=== PATIENT | female | born 1955 | race Caucasian/White ===

== ENCOUNTER → 2017-04-08 | Outpatient (CLI) | payer OTHER | END | disposition home or self-care (01) | LOC: CDC 12:19 | DX: I10 Essential (primary) hypertension (principal); I25.2 Old myocardial infarction; R94.31 Abnormal electrocardiogram [ECG] [EKG] | CPT/HCPCS: 93000 ==

== ENCOUNTER 2017-08-07 15:23 | Inpatient (IN) | payer OTHER ==
[~2017-08-07] VITALS: Ht 167.6 cm; Wt 140.1 kg
[~2017-08-07 15:23] MED LIST: ULTRACET1 TABLET PO
[2017-08-07 16:18] LABS: HEMATOCRIT 39.6 % (36.0-46.0); HEMOGLOBIN 11.6 G/DL (11.9-15.5); MCH 24.3 PG (29.0-34.0); MCHC 29.3 G/DL (30.0-36.0); PLATELET COUNT 239 K/uL (156-360); RBC DIS.WIDTH-CV 17.4 % (11.8-14.6); RBC DIS.WIDTH-SD 52.8 % (39-53); RED BLOOD COUNT 4.77 M/uL (3.80-5.20); WHITE BLOOD COUNT 18.1 K/uL (4.1-10.2)
[2017-08-07 16:29] LABS: CHLORIDE 96 mEq/L (99-109); POTASSIUM 4.6 mEq/L (3.7-5.4); SODIUM 136 mEq/L (136-147)
[2017-08-07 16:30] LABS: GLUCOSE 272 mg/dL (70-99)
[2017-08-07 16:34] LABS: CREATININE 1.4 mg/dL (0.6-1.3); GFR ESTIMATE (CALCULATED) 40 mL/min/
[2017-08-07 16:35] LABS: UREA NITROGEN (BUN) 26 mg/dL (9-23)
[2017-08-07 16:39] LABS: TROP-I INTERPRETATION NEGATIVE; TROPONIN-I 0.03 ng/mL (0.0-0.30)
[2017-08-07 18:41] LABS: BASE EXCESS 5.7 mEq/L (-3 to +3); BICARBONATE 33.5 mEq/L (22-26); COMMENTS - BLOOD GASES A+C=; DEVICE NC; METHEMOGLOBIN 0.9 % (0-1.5); O2 FLOW 6 L/MIN; PCO2 65 mm Hg (35-45); PO2 53 mm Hg (80-100); SITE RR; TOTAL RESP RATE 28 resp/min; pH 7.32 (7.35-7.45)
[2017-08-07] MEDS ORDERED: SUCRALFATE1 GM PO (19:19)
[2017-08-07] MEDS ORDERED: METFORMIN HCL1000 MG PO (19:20)
[2017-08-07] MEDS ORDERED: METHADONE10 MG PO (19:21)
[2017-08-07] MEDS ORDERED: LANTUS 3 M100 UNITS1 SC (19:22)
[2017-08-07] MEDS ORDERED: MONTELUKAST SOD10 MG PO (19:23)
[2017-08-07] MEDS ORDERED: HYDROCHLOROTHIA25 MG PO (19:23)
[2017-08-07] MEDS ORDERED: SPIRIVA RESPIMAT4 GM IH (19:24)
[2017-08-07] MEDS ORDERED: HUMALOG100 UNIT/2 SC (19:28)
[2017-08-07] MEDS ORDERED: CAPOTEN25 MG PO (19:29)
[2017-08-07] MEDS ORDERED: PANTOPRAZOLE SO40 MG PO (19:29)
[2017-08-07] MEDS ORDERED: METOPROLOL SUCC25 MG PO (19:31)
[2017-08-07] MEDS ORDERED: ATORVASTATIN CA20 MG PO (19:31)
[2017-08-07] MEDS ORDERED: LO-DOSE ASPIRIN81 M2 PO (19:32)
[2017-08-07] MEDS ORDERED: SYMBICORT60 INHALAT IH (19:36)
[2017-08-07 22:33] VITALS: BP 148/71
[2017-08-07 22:44] VITALS: BP 148/71
[2017-08-08 03:02] VITALS: BP 151/68
[2017-08-08 04:40] LABS: HEMATOCRIT 36.5 % (36.0-46.0); HEMOGLOBIN 10.9 G/DL (11.9-15.5); MCH 24.6 PG (29.0-34.0); MCHC 29.9 G/DL (30.0-36.0); MCV 82.4 FL (83-99); PLATELET COUNT 246 K/uL (156-360); RBC DIS.WIDTH-CV 17.3 % (11.8-14.6); RED BLOOD COUNT 4.43 M/uL (3.80-5.20); WHITE BLOOD COUNT 14.6 K/uL (4.1-10.2)
[2017-08-08 04:58] LABS: CHLORIDE 97 mEq/L (99-109); POTASSIUM 4.2 mEq/L (3.7-5.4); SODIUM 138 mEq/L (136-147)
[2017-08-08 04:59] LABS: GLUCOSE 190 mg/dL (70-99)
[2017-08-08 05:03] LABS: CREATININE 1.2 mg/dL (0.6-1.3); GFR ESTIMATE (CALCULATED) 48 mL/min/
[2017-08-08 05:04] LABS: UREA NITROGEN (BUN) 25 mg/dL (9-23)
[2017-08-08 07:30] VITALS: BP 155/101
[2017-08-08 11:43] VITALS: BP 155/79
[2017-08-08 16:16] VITALS: BP 159/90
[2017-08-08] MEDS ORDERED: VITAMIN D2000 UNI1 PO (18:30)
[2017-08-08] MEDS ORDERED: FISH OIL 1,2001 EAC4 PO (18:41)
[2017-08-08] MEDS ORDERED: MAXEPA500 MG PO (18:42)
[2017-08-08] MEDS ORDERED: PROAIR HFA8.5 GM IH (18:42)
[2017-08-08 20:49] VITALS: BP 148/69
[2017-08-08 23:07] VITALS: BP 168/80
[2017-08-09 04:35] VITALS: BP 138/69
[2017-08-09 06:55] LABS: BASOPHIL (%) 0.2 % (0-1); EOSINOPHIL (%) 1.2 % (0-5); EOSINOPHIL COUNT 0.2 K/uL (0-0.3); HEMATOCRIT 38.6 % (36.0-46.0); HEMOGLOBIN 10.9 G/DL (11.9-15.5); IMMATURE GRANULOCYTE (%) 0.4 % (0.0-0.7); LYMPHOCYTE (%) 10.1 % (15-42); LYMPHOCYTE COUNT 1.3 K/uL (1.0-2.8); MCH 23.5 PG (29.0-34.0); MCHC 28.2 G/DL (30.0-36.0); MCV 83.2 FL (83-99); MONOCYTE (%) 8.3 % (3-12); MONOCYTE COUNT 1.1 K/uL (0-0.8); NEUTROPHIL (%) 79.8 % (45-76); NEUTROPHIL COUNT 10.4 K/uL (1.8-6.4); PLATELET COUNT 298 K/uL (156-360); RBC DIS.WIDTH-CV 17.6 % (11.8-14.6); RBC DIS.WIDTH-SD 53.5 % (39-53); RED BLOOD COUNT 4.64 M/uL (3.80-5.20)
[2017-08-09 07:20] LABS: CHLORIDE 97 MEQ/L (99-109); CREATININE 1.2 MG/DL (0.6-1.3); GFR ESTIMATE (CALCULATED) 48 mL/min/; GLUCOSE 130 mg/dL (70-99); POTASSIUM 4.3 MEQ/L (3.7-5.4); SODIUM 141 MEQ/L (136-147); UREA NITROGEN (BUN) 26 mg/dL (9-23)
[2017-08-09 08:30] VITALS: BP 161/82
[2017-08-09 11:46] VITALS: BP 136/7
[2017-08-09 16:30] VITALS: BP 131/62
[2017-08-09 19:15] VITALS: BP 169/80
[2017-08-10 00:01] VITALS: BP 155/90
[2017-08-10 04:35] VITALS: BP 166/92
[2017-08-10 05:48] LABS: BASOPHIL (%) 0.2 % (0-1); EOSINOPHIL (%) 0.6 % (0-5); EOSINOPHIL COUNT 0.1 K/uL (0-0.3); HEMATOCRIT 42.2 % (36.0-46.0); HEMOGLOBIN 11.9 G/DL (11.9-15.5); IMMATURE GRANULOCYTE (%) 0.4 % (0.0-0.7); LYMPHOCYTE (%) 5.8 % (15-42); LYMPHOCYTE COUNT 0.7 K/uL (1.0-2.8); MCH 23.5 PG (29.0-34.0); MCHC 28.2 G/DL (30.0-36.0); MCV 83.4 FL (83-99); MONOCYTE (%) 1.8 % (3-12); MONOCYTE COUNT 0.2 K/uL (0-0.8); NEUTROPHIL (%) 91.2 % (45-76); NEUTROPHIL COUNT 10.8 K/uL (1.8-6.4); PLATELET COUNT 309 K/uL (156-360); RBC DIS.WIDTH-CV 17.4 % (11.8-14.6); RBC DIS.WIDTH-SD 53.1 % (39-53); RED BLOOD COUNT 5.06 M/uL (3.80-5.20); WHITE BLOOD COUNT 11.9 K/uL (4.1-10.2)
[2017-08-10 06:22] LABS: CHLORIDE 92 MEQ/L (99-109); CREATININE 1.2 MG/DL (0.6-1.3); GFR ESTIMATE (CALCULATED) 48 mL/min/; SODIUM 139 MEQ/L (136-147); UREA NITROGEN (BUN) 30 mg/dL (9-23)
[2017-08-10 06:23] LABS: GLUCOSE 199 mg/dL (70-99); POTASSIUM 5.2 MEQ/L (3.7-5.4)
[2017-08-10 07:49] VITALS: BP 144/69
[2017-08-10 12:10] VITALS: BP 146/81
[2017-08-10 16:38] VITALS: BP 134/74
[2017-08-10 19:15] VITALS: BP 146/79
[2017-08-11] VITALS (7 sets, daily range): BP systolic 133–163; BP diastolic 68–87
[2017-08-12 03:21] VITALS: BP 169/77
[2017-08-12 07:07] LABS: CHLORIDE 96 MEQ/L (99-109); CREATININE 1.4 MG/DL (0.6-1.3); GFR ESTIMATE (CALCULATED) 40 mL/min/; GLUCOSE 244 mg/dL (70-99); POTASSIUM 5.8 MEQ/L (3.7-5.4); SODIUM 141 MEQ/L (136-147); UREA NITROGEN (BUN) 43 mg/dL (9-23)
[2017-08-12 07:36] VITALS: BP 151/88
[2017-08-12 10:54] VITALS: BP 159/87
[2017-08-12 16:05] VITALS: BP 152/86
[2017-08-12 20:24] VITALS: BP 145/88
[2017-08-13 00:03] VITALS: BP 159/90
[2017-08-13 04:17] VITALS: BP 163/89
[2017-08-13 07:15] VITALS: BP 187/99
[2017-08-13 11:10] VITALS: BP 175/111
[2017-08-13] MEDS ORDERED: MUCINEX600 MG PO (15:15)
[2017-08-13] MEDS ORDERED: CEFTIN500 MG PO (15:16)
[2017-08-13] MEDS ORDERED: PREDNISONE10 MG PO (15:18)
== END 2017-08-13 16:15 | disposition home or self-care (01) | DRG 190 ==
LOC: EME 15:23 → 4EAST 18:47 → EDOF 18:47 → ENRESERV 18:48 → EDOF 20:19 → ENRESERV 20:22 → 4EAST 22:16 → ENRESERV 08-11 → ENRESERVTM 08-11 11:05 → 5SOUTH 08-11 15:00
PROVIDERS: Emergency Medicine; Family Medicine; Hospitalist; Internal Medicine
PROC: 5A09357 Assistance with Respiratory Ventilation, Less than 24 Consecutive Hours, Continuous Positive Airway Pressure (ICD-10-PCS; principal; 2017-08-08)
DX: J44.0 Chronic obstructive pulmonary disease with (acute) lower respiratory infection (principal); J96.22 Acute and chronic respiratory failure with hypercapnia; J96.21 Acute and chronic respiratory failure with hypoxia; J18.9 Pneumonia, unspecified organism; N17.9 Acute kidney failure, unspecified; E66.2 Morbid (severe) obesity with alveolar hypoventilation; E78.5 Hyperlipidemia, unspecified; Z99.81 Dependence on supplemental oxygen; I10 Essential (primary) hypertension; M19.90 Unspecified osteoarthritis, unspecified site; Z68.43 Body mass index [BMI] 50.0-59.9, adult; E86.0 Dehydration; E87.5 Hyperkalemia; G89.29 Other chronic pain; K59.00 Constipation, unspecified; E11.9 Type 2 diabetes mellitus without complications; R26.2 Difficulty in walking, not elsewhere classified; Z79.4 Long term (current) use of insulin
CPT/HCPCS: 36600; 71020; 71250; 80048; 82803; 82948; 83605; 84484; 85025; 85027; 87040; 87070; 87077; 87185; 87205; 87449; 87502; 90686; 93005; 94010; 94640; 94640 76; 94660; 94667; 94668; 94760; 94799; 99202; 99281; 99285; J0696; J1650; J1815; J1956; J2920; J2930; J7030; J7512